=== PATIENT | female | born 1965 | race Caucasian/White ===

== ENCOUNTER 2017-08-11 10:55 | Emergency (ER) | payer OTHER ==
[~2017-08-11] VITALS: Ht 157.5 cm; Wt 55.8 kg
[~2017-08-11 10:55] MED LIST: CILOXAN 0.50 GTT/1 B OD; CYMBALTA60 MG PO; DOLOPHINE10 MG PO; GABAPENTIN300 MG PO; LORAZEPAM0.5 MG PO; QUETIAPINE FUMA50 MG PO; REMERON30 MG PO
[2017-08-11 10:59] VITALS: BP 156/91
--- NOTE | 2017-08-11 11:17 | ED GENERAL ADULT ---
History of Present Illness General Chief Complaint: General Adult Stated Complaint: MED REFILL Source: patient Exam Limitations: no limitations Vital Signs & Intake/Output Vital Signs & Intake/Output Vital Signs Date Time Temp Pulse Resp B/P B/P Pulse O2 O2 Flow FiO2 Mean Ox Delivery Rate 08/11 1059 98.6 100 18 156/91 98 Room Air Allergies Coded Allergies: MDX - SULFA (sulfonamide) (SULFA (SULFONAMIDE)) (Intermediate, HIVES, RASH 03/17) Reconcile Medications Alprazolam (Xanax) 0.5 MG TABLET 1 TAB PO BIDP PRN ANXIETY Ciprofloxacin (Ciloxan 0.3% 2.5ML) 5 ML DROPS 1 GTT OD 4 TIMES/DAY CORNEAL ABRASION DULOXETINE HCL (Cymbalta) 60 MG CAPSULE.DR 1 CAP PO DAILY ANXIETY (Reported) Gabapentin 300 MG CAPSULE 300 MG PO TID NEUROPATHY (Reported) Lorazepam 0.5 MG TABLET 0.5 MG PO BID ANXIETY (Reported) Methadone Hydrochloride (Dolophine) 10 MG TABLET 45 MG PO DAILY DETOX ( Reported) Mirtazapine (Remeron) 30 MG TABLET 1 TAB PO QPM SLEEP (Reported) Quetiapine Fumarate 50 MG TAB 1 TAB PO DAILY ANXIETY (Reported) Triage Note: 51 YO FEMALE TO TRIAGE FOR MED REFILL OF XANAX. STATES SHE THOUGHT SHE HAD MORE REFILLS BUT SHE DOEST NOT, STATES SHE CALLED HER DR BUT HER DR TOLD HER SHE NEEDS TO SEE A [facility] BUT SHE ISNT ABLE TO GET A AN APPT. Triage Nurses Notes Reviewed? yes Onset: Gradual Duration: day(s): Timing: recent history Severity: moderate HPI: 51yo female with hx anxiety and depression presents to ED for medication refill. Patient states that she typically takes Xanax as needed for anxiety. Patient has been seeing psychiatric [facility] who has given her refills of Xanax for the past several months. Patient states that recently she missed appointments that her psychiatric office and received a letter stating she required any psychiatrist. Patient states she was "kicked out of" former psychiatric office. Patient states that yesterday she ran out of her Xanax and pharmacy informed her that she had no further refills. Patient has called several psychiatry offices however cannot make an appointment until early September. Patient denies suicidal ideation, depression, alcohol or drug use, homicidal ideation. Past History Travel History Traveled to [place] past 21 day No Medical History Any Pertinent Medical History? see below for history Neurological: migraine EENT: NONE Cardiovascular: NONE Respiratory: asthma Gastrointestinal: NONE Hepatic: NONE Renal: NONE Musculoskeletal: NONE Psychiatric: anxiety, depression Endocrine: NONE Surgical History Surgical History: non-contributory Psychosocial History What is your primary language Macedonian Tobacco Use: Never used Family History Hx Contributory? No Review of Systems Review of Systems Constitutional: Reports: no symptoms. EENTM: Reports: no symptoms. Respiratory: Reports: no symptoms. Cardiovascular: Reports: no symptoms. GI: Reports: no symptoms. Genitourinary: Reports: no symptoms. Musculoskeletal: Reports: no symptoms. Skin: Reports: no symptoms. Neurological/Psychological: Reports: see HPI. Hematologic/Endocrine: Reports: no symptoms. Immunologic/Allergic: Reports: no symptoms. All Other Systems: Reviewed and Negative Physical Exam Physical Exam General Appearance: well developed/nourished, no apparent distress, alert, awake Head: atraumatic, normal appearance Eyes: Bilateral: normal appearance. Ears, Nose, Throat: hearing grossly normal Neck: normal inspection, supple, full range of motion Respiratory: no respiratory distress Back: normal inspection, normal range of motion Extremities: normal inspection, normal range of motion Neurologic/Psych: awake, alert, oriented x 3, normal gait, normal mood/affect Skin: intact, normal color, warm/dry Core Measures ACS in differential dx? No CVA/TIA Diagnosis: No Sepsis Present: No Sepsis Focused Exam Completed? No Progress Differential Diagnoses I considered the following diagnoses in my evaluation of the patient: [ Benzodiazepine dependence, benzodiazepine withdrawal, anxiety, depression] Plan of Care: CT CORRECTIONS NURSE shows patient was prescribed Xanax 0.5 mg family formerly. The patient last picked up a 30 day prescription for #90 tabs in April. Patient has been making her prescriptions last several months, only takes the medication as needed. Per crisis team, they do not know if appointment secondary made sooner then september. Patient currently without SI/HI, is not currently in crisis, does not wish to be assessed by a psychiatrist here in the ER. I gave patient a short- term refill for her Xanax and instructed her to follow up with new psychiatrist as soon as possible. She will return with any worsening symptoms or concerns. The patient agrees with the plan of care. Initial ED EKG: none Departure Departure Disposition: HOME OR SELF CARE Condition: Stable Clinical Impression Primary Impression: Medication refill Secondary Impressions: Benzodiazepine dependence Referrals: Rena Jonas MD (PCP/Family) Additional Instructions: As discussed, scheduled appointment with psychiatry as soon as possible. Takes Xanax and another psychiatric medication as prescribed. With any worsening symptoms please Return to the emergency department. Please note that there might be incidental findings in your evaluation that are unrelated to the current emergency department visit. Please notify your primary care doctor about this emergency department visit in order to obtain and review all of the testing performed so that these incidental findings can be monitored as needed. If you had an x-ray performed, please understand that some fractures may not be seen on the initial set of x-rays. If your symptoms persist you might need a repeat set of x-rays to check for such a fracture. If you had a laceration evaluated, please understand that foreign bodies such as glass or wood may not be visible to the naked eye or on plain x-rays. If the wound becomes red, swollen, increasingly more painful or if there is any drainage from the wound, please have it reevaluated by a physician for the possibility of a retained foreign body. If you're unable to follow up as outlined in the discharge instructions please return to the emergency department. Thank you for choosing the [facility] Emergency Department for your care. It was a pleasure to serve you today. Departure Forms: Customer Survey General Discharge Information Prescriptions: Current Visit Scripts Alprazolam (Xanax) 1 TAB PO BIDP PRN ANXIETY #10 TAB Critical Care Note Critical Care Note Critical Care Time: non-applicable
[2017-08-11] MEDS ORDERED: XANAX0.5 M1 PO (11:36)
== END 2017-08-11 11:50 ==
LOC: ERH 10:55
DX: F13.20 Sedative, hypnotic or anxiolytic dependence, uncomplicated (principal); Z76.0 Encounter for issue of repeat prescription
CPT/HCPCS: 99281